=== PATIENT | male | born 1980 | race Caucasian/White ===

== ENCOUNTER 2024-03-27 05:53 | Emergency (ER) | payer BC, SELFPAY ==
--- NOTE | ~2024-03-27 | CT_ITS ---
CT of the Abdomen and Pelvis: Indication: Abdominal pain Technique: 2.5 mm axial scans were obtained through the abdomen and pelvis following intravenous adm inistration of 100 cc of Omnipaque 350. Dose reduction technique was used on this scan by utilizing a utomated exposure control and iterative reconstruction technique. The dose-length product (DLP) was 1 124.73 mGy-cm. Findings: Scans through the lung bases are unremarkable. There is diffuse hepatic steatosis. The spleen, pancreas, gallbladder, adrenals and right kidney are within normal limits. There is mild left hydroureteronephrosis, with mild left perinephric stranding. There is a punctate nonobstructing left renal stone. No evidence of aortic aneurysm. No lymphadenop athy. No bowel obstruction or bowel wall thickening. There is no evidence to suggest acute appendicitis. Images through the pelvis were performed. There is a 2 mm stone either at the left UVJ, or possibly j ust within the urinary bladder. No other bladder abnormality seen. No pelvic mass seen. No ascites. Impression: 2 mm probable left UVJ stone, versus stone just within the urinary bladder. Associated mild left hydr oureteronephrosis and probably minimally delayed nephrogram as compared to the right side. Additional punctate nonobstructing left renal stone. Reviewed, dictated and finalized at location . Impression: 2 mm probable left UVJ stone, versus stone just within the urinary bladder. Ass ociated mild left hydroureteronephrosis and probably minimally delayed nephrogr am as compared to the right side. Additional punctate nonobstructing left renal stone.
[2024-03-27 06:22] LABS: Basophils Percent Auto 0.4 % (0.2-1.2); Eosinophils Absolute Auto 0.3 K/mm3 (0-0.3); Hematocrit 44.7 % (42.0-52.0); Hemoglobin 15.6 g/dL (14.0-18.0); Immature Granulocyte Absolute 0.03 K/mm3 (0.00-0.031); Immature Granulocyte Percent A 0.4 % (0-0.5); Lymphocytes Absolute Auto 2.49 K/mm3 (0.9-3.2); Lymphocytes Percent Auto 35.9 % (18.3-44.2); Mean Corpuscular HGB Conc 34.9 g/dl (32-36); Mean Corpuscular Volume 91.8 fl (80-100); Monocytes Absolute Auto 0.7 K/mm3 (0.1-0.6); Monocytes Percent Auto 9.5 % (2.6-8.5); Neutrophils Absolute Auto 3.4 K/mm3 (1.3-6.7); Neutrophils Percent Auto 49.8 % (45.5-73.1); Platelet Count Result 220 k/mm3 (150-375); Red Blood Count 4.87 M/mm3 (4.6-6.20); Red Cell Distribution Width 12.4 % (11.5-14.5); White Blood Count 6.9 K/mm3 (4.5-10.0)
[2024-03-27] MEDS: SODIUM CHLORIDE 0.9% IV 1,000 ML 999 ML IV CONT ×2 (06:25→07:56)
[2024-03-27] MEDS: KETOROLAC 30 MG/ML VIAL (*BKC) IV PUSH (06:26)
[2024-03-27 06:32] LABS: Alanine Aminotransferase 42 U/L (6-50); Albumin Level 4.5 g/dL (3.5-5.1); Alkaline Phosphatase 56 U/L (38-126); Anion Gap 11 mmol/L (4-12); Aspartate Amino Transferase 39 U/L (17-59); Bilirubin,Total 0.5 mg/dL (0.2-1.3); Blood Urea Nitrogen 25 mg/dL (9-20); Calcium 9.1 mg/dL (8.4-10.2); Carbon Dioxide 22 mmol/L (22-30); Chloride 108 mmol/L (98-107); Estimated CRCL calculation 76 ml/min; Estimated Glomerular Filt Rate > 60; Glucose 116 mg/dL (65-110); Lipase 81 U/L (23-300); Sodium 141 mmol/L (137-145)
--- NOTE | 2024-03-27 07:19 | ED.ABDPAIN ---
HPI - Abdominal Pain General Chief Complaint: Abdominal Pain Stated Complaint: L flank pain wrapping to front Time Seen by Provider: 03/27/24 07:18 Source: patient Mode of arrival: ambulatory Limitations: no limitations History of Present Illness HPI narrative: 43 years old white male came to the ED by private car complaining of left lower quadrant pain, dull aching, squeezing, started 4 hours prior to arrival to the emergency room, denies any fever, chills, nausea, vomiting, aggravating or relieving factors. History of GI problems for 10 years, possible IBS. History appendectomy. Related Data Allergies Allergy/AdvReac Type Severity Reaction Status Date / Time No Known Allergies Allergy Verified 03/27/24 06:25 Review of Systems Review of Systems: All systems reviewed & are unremarkable except as noted in HPI and below Exam Narrative: General appearance: Well-developed, well-nourished Skin: Normal color Head: Normocephalic, nontraumatic Eyes: Clear conjunctiva ENT: Oropharynx normal, ears normal, nose normal Neck: Supple, nontender Chest and respiratory: Airway patent, no respiratory distress, no accessory muscle use Heart: Regular rate/rhythm Abdomen: Soft, mild diffuse tenderness lower abdomen mainly left lower quadrant, no guarding or rebound, no organomegaly, quiet bowel sounds Vascular: Normal peripheral pulses, normal capillary refill. Musculoskeletal: Normal range of motion, nontender back Neurologic: Alert and oriented ?3, SOLE LAYER is normal as tested, no gross motor deficit Course Vital Signs Vital signs: Vital Signs Pulse Rate 82 03/27/24 08:01 Respiratory Rate 18 03/27/24 08:01 Blood Pressure 152/93 H 03/27/24 08:01 Pulse Oximetry 98 03/27/24 08:01 Pulse Rate 82 03/27/24 08:01 Respiratory Rate 18 03/27/24 08:01 Blood Pressure 152/93 H 03/27/24 08:01 Pulse Oximetry 98 03/27/24 08:01 MDM - Abdominal Pain MDM Narrative Medical decision making narrative: Differential diagnosis include IBS flare, colitis, diverticulitis, urinary tract infection, kidney stone, constipation, stress related. Blood workup today showed insignificant abnormality, urinalysis showed no evidence of infection, CT abdomen and pelvis showed 2 mm probable left UVJ stone versus stone just within the urinary bladder. Patient is feeling great, currently denying any pain, possibly passed the stone. Patient was asymptomatic at the time of discharge. Differential Diagnosis Differential diagnosis: Likely other (As above) Medical Records Attestation: I reviewed the patient's medical records. Lab Data Attestation: I reviewed the patient's lab results. 03/27/24 06:16 03/27/24 06:16 Labs: Lab Results 03/27/24 03/27/24 Range/Units 06:16 08:02 WBC 6.9 (4.5-10.0) K/mm3 RBC 4.87 (4.6-6.20) M/mm3 Hgb 15.6 (14.0-18.0) g/dL Hct 44.7 (42.0-52.0) % MCV 91.8 (80-100) fl MCH 32.0 (26-34) pg MCHC 34.9 (32-36) g/dl RDW 12.4 (11.5-14.5) % Plt Count 220 (150-375) k/mm3 MPV 10.0 (7.4-10.4) fl Immature Gran % (Auto) 0.4 (0-0.5) % Neut % (Auto) 49.8 (45.5-73.1) % Lymph % (Auto) 35.9 (18.3-44.2) % [place] % (Auto) 9.5 H (2.6-8.5) % Eos % (Auto) 4.0 (0-4.4) % Baso % (Auto) 0.4 (0.2-1.2) % Lymph # (Auto) 2.49 (0.9-3.2) K/mm3 [place] # (Auto) 0.7 H (0.1-0.6) K/mm3 Eos # (Auto) 0.3 (0-0.3) K/mm3 Baso # (Auto) 0.0 (0.0-0.1) K/mm3 Abs Immat Gran (auto) 0.03 (0.00-0.031) K/mm3 Absolute Neuts (auto) 3.4 (1.3-6.7) K/mm3 Absolute Nucleated RBC 0.000 (0.0-0.012) K/mm3 Nucleated RBC % 0.0 (0.0-0.2) % Sodium 141 (137-145) mmol/
[2024-03-27] MEDS: HYDROmorphone HCL INJ (*CRX) 1 MG/ML SYR 0.5 MG IV PUSH (07:56)
[2024-03-27] MEDS: ONDANSETRON INJ 4 MG/2 ML VIAL IV PUSH (07:57)
[2024-03-27 08:01] VITALS: BP 152/93; PULSE 82; RESP 18; O2SAT 98
[2024-03-27 08:10] LABS: Appearance Urine Clear (Clear); Bilirubin Urine Negative (Negative); Blood Urine Negative (Negative); Color Urine Yellow (Yellow); Glucose Urine UA Negative (Negative); Ketones Urine Negative (Negative); Leukocyte Esterase Ur Negative LEU/UL (Negative); Nitrate Urine Negative (Negative); Protein Urine Negative (Negative); Specific Grav Ur 1.034 (1.001-1.035); Urobilinogen Urine 0.2 mg/dL (<2.0); pH Urine 5.5 (5.0-9.0)
[2024-03-27 08:15] LABS: Add Urine Microscopic? NO
[2024-03-27 08:30] VITALS: BP 140/83; PULSE 72; RESP 18; O2SAT 95
[2024-03-27 09:00] VITALS: BP 132/86; PULSE 78; RESP 16; TEMP 36.7; O2SAT 96
[2024-03-27] MEDS: TAMSULOSIN HCL 0.4 MG CAPSULE PO (09:54)
[2024-03-27 10:04] VITALS: BP 145/90; PULSE 75; RESP 18; O2SAT 100
== END 2024-03-27 10:08 | disposition home or self-care (01) ==
PROVIDERS: Emergency Medicine; Emergency Provider Emergency Medicine
DX: N13.2 Hydronephrosis with renal and ureteral calculous obstruction (principal)
CPT/HCPCS: 36415; 74177; 80053; 81003; 83690; 85025; 96361; 96374; 96375; 99284; A9270; J1170; J1885; J2405; J7030; Q9967